=== PATIENT | male | born 1955 | race Caucasian/White ===

== ENCOUNTER → 2016-05-20 | Outpatient (CLI) | payer BC ==
[~2016-05-20] MED LIST: BNT20 PO
--- NOTE | 2016-05-20 13:41 | DIAGNOSTIC IMAGING REPORT ---
C-SPINE ROUTINE 4 OR 5 VIEWS CLINICAL HISTORY: Neck pain COMPARISON STUDY: No previous studies for comparison. FINDINGS: No acute fractures are visualized. There is 2 mm of anterior subluxation of C4 on C5. This is felt to be degenerative. There is slight reversal the normal cervical lordosis. There are degenerative changes with disc space narrowing most pronounced at the C5-6 level. There is also disc space narrowing C6-7 level. There is C5-6 and C6-7 neural foraminal narrowing on the right. IMPRESSION: 1. No fractures or traumatic subluxations are visualized 2. Degenerative changes the C5-6 and C6-7 levels. 3. 2 mm of anterior subluxation of C4 on C5, likely degenerative Electronically signed by: Glen Redd M.D. 05/20/2016 1:39 PM
== END | disposition home or self-care (01) ==
LOC: C.RAD1850 12:58
PROVIDERS: ATTEND Family Medicine
DX: M54.2 Cervicalgia (principal)

== ENCOUNTER → 2017-03-18 | Outpatient (CLI) | payer BC ==
--- NOTE | 2017-03-18 15:53 | DIAGNOSTIC IMAGING REPORT ---
VENOUS DOPP LOWER EXT UNILAT CLINICAL HISTORY: SWELLING LL EXT pain. Edema. TECHNIQUE: Venous Doppler COMPARISON STUDY: None FINDINGS: Findings consistent with thrombus remains within the left common femoral vein to the left popliteal vein. Scattered plaque formation within the venous structures left calf. IMPRESSION: Findings consistent with deep venous thrombosis in of the left thigh from the common femoral vein through popliteal. Probable involvement of the smaller vessels of the left calf. The above report was generated using voice recognition software. It may contain grammatical, syntax or spelling errors. Electronically signed by: Kenji Jones M.D. 03/18/2017 3:51 PM Dictated Date/Time: 03/18/2017 3:50 PM
== END | disposition home or self-care (01) ==
LOC: C.ULTR 15:22
PROVIDERS: ATTEND Family Medicine
DX: M79.89 Other specified soft tissue disorders (principal)

== ENCOUNTER → 2017-03-30 | Outpatient (CLI) | payer BC ==
--- NOTE | 2017-03-30 11:03 | DIAGNOSTIC IMAGING REPORT ---
CT LUNG SCREENING, LOW DOSE WITH COMPUTER-AIDED DETECTION (CAD) CLINICAL HISTORY: Tobacco abuse. Emphysema. COMPARISON STUDY: 11/05/2015 CT DOSE: 98.95 mGy.cm TECHNIQUE: Low-dose helical CT was acquired without intravenous contrast from lung apices to bases and reconstructed at 2.5 mm every 2 mm. CAD was utilized for this study. A dose lowering technique was utilized adhering to the principles of ALARA. FINDINGS: Thyroid: Imaged portions of the thyroid gland are normal in appearance. Thoracic aorta: There is mild ectasia of the ascending thoracic aorta which measures 41 mm in diameter Heart: The heart is normal in size and configuration, without pericardial effusion. Lungs and pleural spaces: No pleural effusions are visualized. There is severe pulmonary emphysema. There is no focal pulmonary consolidation. There is are scattered calcified granulomas present. There is stable right apical scarring Mediastinum: There is no evidence of pathologic mediastinal adenopathy Laura: There is no evidence of pathologic hilar adenopathy given the limitations of a noncontrast study Axilla: There is no evidence of pathologic axillary lymphadenopathy Upper abdomen: Right renal calcifications are visualized. The left kidney appears atrophic. Skeletal structures: There are no lytic or blastic osseous lesions. IMPRESSION: 1. No suspicious pulmonary nodules. 2. Emphysema 3. Continue annual lung screening. CAD FINDINGS: Overall Lung RADS Category: 1 Lung RADS Management Recommendation: Continue annual lung cancer screening. Lung RADS Follow Up Date: 2018-03-30 Lung RADS Nodule ID: Electronically signed by: Glen Redd M.D. 03/30/2017 11:03 AM Dictated Date/Time: 03/30/2017 10:55 AM
== END | disposition home or self-care (01) ==
LOC: C.CTS 10:42
PROVIDERS: ATTEND Family Medicine
DX: Z12.2 Encounter for screening for malignant neoplasm of respiratory organs (principal); J43.9 Emphysema, unspecified